=== PATIENT | female | born 1975 | race Caucasian/White ===

== ENCOUNTER → 2016-12-29 07:37 | Outpatient (CLI) | payer MEDICAID | END | disposition home or self-care (01) | LOC: D.US 07:37 | DX: N92.6 Irregular menstruation, unspecified (principal) ==

== ENCOUNTER 2017-02-10 18:46 | Emergency (ER) | payer MEDICAID | END 2017-02-10 19:47 | disposition home or self-care (01) | LOC: D.ER 18:46 | DX: K59.03 Drug induced constipation (principal); T40.2X5A Adverse effect of other opioids, initial encounter; F17.200 Nicotine dependence, unspecified, uncomplicated ==

== ENCOUNTER 2018-02-02 06:44 | Emergency (ER) | payer MEDICAID ==
[~2018-02-02] VITALS: Ht 167.6 cm; Wt 81.8 kg
[2018-02-02 06:50] VITALS: BP 130/79; Ht 167.6 cm; Wt 81.8 kg
[2018-02-02] MEDS ORDERED: CYMBALTA60 MG PO (06:52)
[2018-02-02] MEDS ORDERED: NORCO 7.5/325 T1 TA1 PO (07:08)
[2018-02-02] MEDS ORDERED: KEFLEX500 MG PO (07:08)
== END 2018-02-02 07:17 | disposition home or self-care (01) ==
LOC: D.ER 06:44
DX: K08.89 Other specified disorders of teeth and supporting structures (principal); F17.200 Nicotine dependence, unspecified, uncomplicated

== ENCOUNTER → 2019-06-19 15:01 | Outpatient (CLI) | payer MEDICAID ==
[2018-02-02 06:50] VITALS: BMI 29.1
[~2019-06-19 15:01] MED LIST: CYMBALTA60 MG PO; KEFLEX500 MG PO; NORCO 7.5/325 T1 TA1 PO
--- NOTE | 2019-06-24 08:48 | ST ---
PATIENT:CHERRI DEGROOT MEDICAL RECORD: [id number] SEX: F LOCATION:[facility] ORDER #: ADMISSION DATE: 06/19/19 AGE OF PATIENT: 43 REFERRING PHYSICIAN: INTERPRETING PHYSICIAN: LAUREN SMALL MD DATE OF SERVICE: 06/19/2019 Baseline ECG is normal. Exercised for 6 minutes and 34 seconds on Yeison protocol. Maximum heart rate of 137 beats per minute, less than 85% max predicted. No ECG changes of ischemia. No symptoms of ischemia. Normal blood pressure response to exercise. No arrhythmias noted. [id number]-ai-awbm exercise tolerance. TRANSINT:[id number] Voice Confirmation ID: [id number] DOCUMENT ID: [id number] LAUREN SMALL MD at 0848 CC: [id number] DICTATION DATE: 06/21/19 1011 SPEECH LANGUAGE PATHOLOGIST PRN: 06/21/19 1043 DEP CLI 06/19/[address] [facility] [address] [place] [address]
== END | disposition home or self-care (01) ==
LOC: D.HCCARDIO 15:01
PROVIDERS: ATTEND Internal Medicine Interventional Cardiology
DX: R07.9 Chest pain, unspecified (principal)